=== PATIENT | female | born 1995 | race Two or more races ===

== ENCOUNTER 2019-01-23 06:39 | Emergency (ER) | payer SELFPAY ==
[~2019-01-23] VITALS: Ht 167.6 cm; Wt 57.6 kg
--- NOTE | 2019-01-23 07:09 | NUR ---
VIKRAM FROM HOME. TO ER BED2. AAOX4. BREATHING EVEN AND UNLABORED. CRYING AND ANXIOUS. PT CAME IN FOR FEELING OF ANXIRTY. PT REPORTS THAT SHE HAS BEEN WORKING TOO MUCH AND HAVENT HAD A DAY OFF FOR A WHILE WHICH IS CAUSING HER STRESS. AT BEDSIDE FOR ALEC
[2019-01-23] MEDS ORDERED: LORAZEPAM 0.5 MG TABLET ONE (07:19)
--- NOTE | 2019-01-23 07:24 | NUR ---
Patient discharged to home in stable condition. Written and verbal after care instructions given. Patient verbalizes understanding of instruction. pt was adviced on not to drive. pt will get an uber back home.
[2019-01-23 07:25] VITALS: BP 136/88
[2019-01-23] MEDS ORDERED: LORAZEPAM 1 MG TABLET PO ONE (07:30)
== END 2019-01-23 07:26 | disposition home or self-care (01) ==
LOC: ER 06:41
DX: F41.9 Anxiety disorder, unspecified (principal); H05.223 Edema of bilateral orbit; J45.909 Unspecified asthma, uncomplicated

== ENCOUNTER 2020-03-02 19:30 | Emergency (ER) | payer BC ==
[~2020-03-02] VITALS: Ht 170.2 cm; Wt 61.2 kg
--- NOTE | 2020-03-02 20:02 | NUR ---
PT AAOX4. BIBSELF C/O R KNEE PAIN S/P DRIVING. NO SKIN ISSUES, -TRAUMA. PT ABLE TO MOVE EXT. AWAITING MD FOR EVAL AND ORDERS.
[2020-03-02] MEDS ORDERED: KETOROLAC TROMETHAMINE INJ 60 MG/2 ML VIAL IM ONE (20:30)
--- NOTE | 2020-03-02 20:37 | NUR ---
PT STATED SHE DOES NOT HAVE ANY PAIN AT THE MOMENT. ALSO, STATED SHE TOOK "TYLENOL OR SOMETHING" FOR HER PAIN [employer]OP [employer].
--- NOTE | 2020-03-02 20:51 | NUR ---
Patient discharged to home in stable condition. Written and verbal after care instructions given. Patient verbalizes understanding of instruction and RX. R knee octavio wrapped and pt given crutches. VSS. Pt ambulated in E.D. using crutches.
[2020-03-02 20:55] VITALS: BP 124/73
== END 2020-03-02 20:59 | disposition home or self-care (01) ==
LOC: ER 19:39
DX: S86.811A Strain of other muscle(s) and tendon(s) at lower leg level, right leg, initial encounter (principal); J45.909 Unspecified asthma, uncomplicated; X58.XXXA Exposure to other specified factors, initial encounter; Y93.89 Activity, other specified; Y92.89 Other specified places as the place of occurrence of the external cause; Y99.8 Other external cause status
CPT/HCPCS: 73564-TC; 93971-TC